=== PATIENT | female | born 1985 | race Caucasian/White ===

== ENCOUNTER 2019-08-12 11:09 | Emergency (ER) | payer MEDICAID, OTHER ==
[~2019-08-12] VITALS: Ht 165.1 cm; Wt 93.0 kg
[2019-08-12] MEDS ORDERED: SODIUM CHLORIDE 0.9% 1,000 ML IV ONE (11:18)
[2019-08-12 12:23] LABS: Basophils # (auto) 0 uL; Basophils % (auto) 0.6 % (0.0-2.0); Eosinophils # (auto) 0.1 uL; Eosinophils % (auto) 1.7 % (0.0-7.0); Hemoglobin 13.8 g/dL (12.2-16.2); Lymphocytes # (auto) 3.4 uL; Lymphocytes % (auto) 43.1 % (10.0-50.0); Mean Corpuscular Hemoglobin 29.2 pg (28.0-32.0); Mean Corpuscular Hgb Conc. 33.7 g/dL (32.0-36.0); Mean Corpuscular Volume 86.8 fL (80.0-100.0); Monocytes # (auto) 0.4 uL; Monocytes % (auto) 4.5 % (0.0-12.0); Neutrophils # (auto) 3.9 uL; Neutrophils % (auto) 50.1 % (37.0-80.0); Nucleated Red Blood Cells % 0.1 %; Platelet Count (auto) 251 10^3/uL (140-450); Red Blood Cells 4.72 10^6/uL (4.0-5.20); Red Cell Distribution Width 13.7 % (11.8-14.3); White Blood Cell 7.9 10^3/uL (4.4-10.8)
[2019-08-12 12:43] LABS: Albumin 3.7 g/dL (3.4-5.0); Calcium 9.2 mg/dL (8.5-10.1); Magnesium 1.8 mg/dL (1.6-2.6); Potassium 3.8 mmol/L (3.5-5.1)
[2019-08-12 12:46] LABS: Bilirubin, Total 0.2 mg/dL (0.2-1.0); Total Protein 7.5 g/dL (6.4-8.2)
[2019-08-12] MEDS ORDERED: KETOROLAC TROMETH 30 MG/ML 1ML VIAL IV ONE (14:30)
[2019-08-12] MEDS ORDERED: ONDANSETRON HCL 4 MG/2 ML VIAL IV ONE (17:30)
[2019-08-12] MEDS ORDERED: MORPHINE SULFATE 4 MG/ML SYR/VIAL IV ONE (17:30)
[2019-08-12 18:15] VITALS: BP 114/81
== END 2019-08-12 18:55 | disposition home or self-care (01) ==
LOC: ER 11:12
DX: M79.10 Myalgia, unspecified site (principal); F12.10 Cannabis abuse, uncomplicated; Z98.51 Tubal ligation status; Z88.2 Allergy status to sulfonamides; Z88.8 Allergy status to other drugs, medicaments and biological substances
CPT/HCPCS: 36415; 80053; 82553; 83735; 85025; 93005; 94761; 96374; 96375; 99284; J1885; J2270; J2405; J7030

== ENCOUNTER 2021-03-25 23:48 | Inpatient (IN) | payer MEDICAID ==
[~2021-03-25] VITALS: Ht 165.1 cm; Wt 94.6 kg
[2021-03-26 00:49] LABS: Basophils # (auto) 0.1 10 ^3/uL (0-0.2); Basophils % (auto) 0.3 % (0.0-2.0); Eosinophils # (auto) 0.1 10 ^3/uL (0-0.8); Eosinophils % (auto) 0.5 % (0.0-7.0); Hematocrit 41.3 % (36.0-46.0); Hemoglobin 13.9 g/dL (12.2-16.2); Lymphocytes # (auto) 5.2 10 ^3/uL (0.4-5.4); Lymphocytes % (auto) 22.2 % (10.0-50.0); Mean Corpuscular Hemoglobin 28.8 pg (28.0-32.0); Mean Corpuscular Hgb Conc. 33.8 g/dL (32.0-36.0); Mean Corpuscular Volume 85.5 fL (80.0-100.0); Monocytes # (auto) 1.1 10 ^3/uL (0-1.3); Monocytes % (auto) 4.6 % (0.0-12.0); Neutrophils % (auto) 72.4 % (37.0-80.0); Platelet Count (auto) 344 10^3/uL (140-450); Red Blood Cells 4.83 10^6/uL (4.0-5.20); White Blood Cell 23.4 10^3/uL (4.4-10.8)
[2021-03-26 01:08] LABS: Urine Bacteria FEW /hpf (None Seen); Urine Blood Negative /uL (Negative); Urine WBC 2 /hpf (0 - 5)
[2021-03-26 01:09] LABS: Albumin 3.7 g/dL (3.4-5.0); Calcium 9.5 mg/dL (8.5-10.1); Potassium 3.5 mmol/L (3.5-5.1)
[2021-03-26 01:10] LABS: BUN/Creatinine Ratio 21.3; Bilirubin, Total 0.3 mg/dL (0.2-1.0); Magnesium 2.2 mg/dL (1.6-2.6)
[2021-03-26] MEDS ORDERED: ONDANSETRON HCL 4 MG/2 ML VIAL IV ONE (01:45)
[2021-03-26] MEDS ORDERED: SODIUM CHLORIDE 0.9% 2,000 ML IV ONE (01:45)
[2021-03-26 02:11] LABS: Alcohol, Urine < 3.0 mg/dL (0-10); Amphetamine Screen, Urine NEGATIVE (NEGATIVE); Barbiturate Scree,Urine NEGATIVE (NEGATIVE); Benzodiazephine Screen, Urine NEGATIVE (NEGATIVE); Cannabinoid Screen, Urine NEGATIVE (NEGATIVE); Cocaine Screen, Urine NEGATIVE (NEGATIVE); Opiate Scree,Urine NEGATIVE (NEGATIVE); Phencyclidine Screen, Urine NEGATIVE (NEGATIVE)
[2021-03-26] MEDS ORDERED: IOHEXOL 300 MG/ML 100ML BOTTLE IJ ONE (02:14)
[2021-03-26] MEDS ORDERED: KETOROLAC TROMETH 30 MG/ML 1ML VIAL IV ONE (02:45)
[2021-03-26] MEDS ORDERED: fentaNYL CITRATE 100 MCG/2 ML VL IV ONE (05:45)
[2021-03-26] MEDS ORDERED: levoFLOXacin 500MG 100 ML IV ONE (05:45)
[2021-03-26] MEDS ORDERED: metroNIDAZOLE 500MG/100ML 100 ML IV ONE (05:45)
[2021-03-26] MEDS ORDERED: NITROGLYCERIN 0.4 MG SL TAB SL PRN (08:30)
[2021-03-26] MEDS ORDERED: MORPHINE SULF INJ 2 MG/ML SYRINGE 1ML IV PRN (08:30)
[2021-03-26] MEDS ORDERED: ACETAMINOPHEN 325 MG TAB PO PRN (08:30)
[2021-03-26] MEDS: SODIUM CHLORIDE 0.9% 1,000 ML IV SCH ×3 (09:00→22:06)
[2021-03-26] MEDS: cefTRIAXone 1GM/50ML D5W 50 ML IV SCH (09:24)
[2021-03-26] MEDS: MORPHINE SULF INJ 2 MG/ML SYRINGE 1ML IV PRN ×3 (09:24→20:06)
[2021-03-26] MEDS: PROMETHAZINE HCL 25 MG/ML 1ML IV PRN (09:25)
[2021-03-26 10:52] VITALS: BP 121/76
[2021-03-26] MEDS: HYDROcodone-ACET 5/325MG TAB PO PRN (11:08)
[2021-03-26] MEDS ORDERED: GABA-339 PO (11:18)
[2021-03-26] MEDS ORDERED: ONDA-144 PO (11:18)
[2021-03-26] MEDS ORDERED: BACL10TA PO (11:18)
[2021-03-26] MEDS ORDERED: FAMO-12 PO (11:18)
[2021-03-26] MEDS ORDERED: NALO4SPR2 (11:18)
[2021-03-26] MEDS ORDERED: LIDO1KIT EX (11:18)
[2021-03-26] MEDS ORDERED: DICL1GEL72 EX (11:18)
[2021-03-26] MEDS ORDERED: OXYC325T14 PO (11:18)
[2021-03-26] MEDS ORDERED: LIDO5CRE14 EX (11:18)
[2021-03-26] MEDS ORDERED: SERT50TA19 PO (11:18)
[2021-03-26] MEDS ORDERED: LIDO5PAD8 EX (11:19)
[2021-03-26] MEDS: metroNIDAZOLE 500MG/100ML 100 ML IV SCH ×2 (14:21→22:06)
[2021-03-26 16:42] VITALS: BP 136/75
[2021-03-26] MEDS ORDERED: SERTRALINE HCL 50 MG TAB PO ONE (18:45)
[2021-03-26 22:00] VITALS: BP 128/71
[2021-03-26] MEDS: GABAPENTIN 300 MG CAP PO SCH (22:04)
[2021-03-27] MEDS: MORPHINE SULF INJ 2 MG/ML SYRINGE 1ML IV PRN ×6 (00:10→21:33)
[2021-03-27] MEDS: PROMETHAZINE HCL 25 MG/ML 1ML IV PRN ×2 (00:45→13:26)
[2021-03-27 05:00] VITALS: BP 130/83
[2021-03-27] MEDS: metroNIDAZOLE 500MG/100ML 100 ML IV SCH ×3 (05:36→21:34)
[2021-03-27] MEDS: SODIUM CHLORIDE 0.9% 1,000 ML IV SCH (05:36)
[2021-03-27 05:52] LABS: Basophils # (auto) 0 10 ^3/uL (0-0.2); Basophils % (auto) 0.3 % (0.0-2.0); Eosinophils # (auto) 0.2 10 ^3/uL (0-0.8); Eosinophils % (auto) 2.1 % (0.0-7.0); Hematocrit 35.9 % (36.0-46.0); Lymphocytes # (auto) 3.2 10 ^3/uL (0.4-5.4); Lymphocytes % (auto) 27.4 % (10.0-50.0); Mean Corpuscular Hemoglobin 29.1 pg (28.0-32.0); Mean Corpuscular Hgb Conc. 33.4 g/dL (32.0-36.0); Monocytes # (auto) 0.6 10 ^3/uL (0-1.3); Monocytes % (auto) 5.4 % (0.0-12.0); Neutrophils # (auto) 7.5 10 ^3/uL (1.6-8.6); Neutrophils % (auto) 64.8 % (37.0-80.0); Nucleated Red Blood Cells % 0.1 %; Platelet Count (auto) 237 10^3/uL (140-450); Red Blood Cells 4.13 10^6/uL (4.0-5.20); Red Cell Distribution Width 13.4 % (11.8-14.3); White Blood Cell 11.6 10^3/uL (4.4-10.8)
[2021-03-27 06:07] LABS: Potassium 3.6 mmol/L (3.5-5.1)
[2021-03-27 06:13] LABS: BUN/Creatinine Ratio 13.3; Calcium 7.2 mg/dL (8.5-10.1)
[2021-03-27 08:48] VITALS: BP 123/59
[2021-03-27] MEDS: cefTRIAXone 1GM/50ML D5W 50 ML IV SCH (09:06)
[2021-03-27] MEDS: FAMOTIDINE 20 MG TAB PO SCH (09:07)
[2021-03-27] MEDS: GABAPENTIN 300 MG CAP PO SCH ×2 (09:07→21:34)
[2021-03-27] MEDS: SERTRALINE HCL 50 MG TAB PO SCH (09:07)
[2021-03-27 13:00] VITALS: BP 118/76
[2021-03-27 16:47] VITALS: BP 123/71
[2021-03-27 22:00] VITALS: BP 122/66
[2021-03-27] MEDS: HYDROcodone-ACET 5/325MG TAB PO PRN (22:47)
[2021-03-28] MEDS: MORPHINE SULF INJ 2 MG/ML SYRINGE 1ML IV PRN ×4 (01:34→14:33)
[2021-03-28 05:00] VITALS: BP 112/68
[2021-03-28] MEDS: metroNIDAZOLE 500MG/100ML 100 ML IV SCH ×2 (05:50→15:07)
[2021-03-28 06:23] LABS: Basophils # (auto) 0.1 10 ^3/uL (0-0.2); Basophils % (auto) 0.8 % (0.0-2.0); Eosinophils # (auto) 0.3 10 ^3/uL (0-0.8); Eosinophils % (auto) 3.1 % (0.0-7.0); Hematocrit 36.4 % (36.0-46.0); Hemoglobin 12.5 g/dL (12.2-16.2); Lymphocytes % (auto) 37.2 % (10.0-50.0); Mean Corpuscular Hemoglobin 29.9 pg (28.0-32.0); Mean Corpuscular Hgb Conc. 34.4 g/dL (32.0-36.0); Monocytes # (auto) 0.7 10 ^3/uL (0-1.3); Monocytes % (auto) 6.2 % (0.0-12.0); Neutrophils # (auto) 5.7 10 ^3/uL (1.6-8.6); Neutrophils % (auto) 52.7 % (37.0-80.0); Platelet Count (auto) 241 10^3/uL (140-450); Red Blood Cells 4.18 10^6/uL (4.0-5.20); Red Cell Distribution Width 13.3 % (11.8-14.3); White Blood Cell 10.8 10^3/uL (4.4-10.8)
[2021-03-28 06:41] LABS: BUN/Creatinine Ratio 14.3; Calcium 7.7 mg/dL (8.5-10.1); Potassium 3.3 mmol/L (3.5-5.1)
[2021-03-28] MEDS: HYDROcodone-ACET 5/325MG TAB PO PRN ×2 (07:53→15:54)
[2021-03-28 09:00] VITALS: BP 122/97
[2021-03-28] MEDS: cefTRIAXone 1GM/50ML D5W 50 ML IV SCH (10:12)
[2021-03-28] MEDS: FAMOTIDINE 20 MG TAB PO SCH (10:12)
[2021-03-28] MEDS: GABAPENTIN 300 MG CAP PO SCH (10:12)
[2021-03-28] MEDS: SERTRALINE HCL 50 MG TAB PO SCH (10:13)
[2021-03-28] MEDS ORDERED: CHOLESTYRAMINE 4 GM POWDER GT SCH (12:30)
[2021-03-28] MEDS ORDERED: CHOLESTYRAMINE 4 GM POWDER PO SCH (12:45)
[2021-03-28 13:00] VITALS: BP 125/91
[2021-03-28] MEDS ORDERED: METR500T PO (16:45)
[2021-03-28] MEDS ORDERED: IBUP600T27 PO (16:45)
[2021-03-28] MEDS ORDERED: DOXY-332 PO (16:45)
[2021-03-28] MEDS ORDERED: PROBCAP9 PO (16:45)
[2021-03-28 16:54] VITALS: BP 119/83
[2021-03-28 16:55] VITALS: BP 115/45
[2021-03-28 17:33] VITALS: BP 119/83
== END 2021-03-28 18:15 | disposition home or self-care (01) | DRG 249 ==
LOC: ER 23:48 → EDBD 23:48 → WEST WING 03-26 08:18
PROVIDERS: ADMIT Hospitalist; ATTEND Hospitalist
DX: K52.9 Noninfective gastroenteritis and colitis, unspecified (principal); R65.10 Systemic inflammatory response syndrome (SIRS) of non-infectious origin without acute organ dysfunction; Z20.822 Contact with and (suspected) exposure to COVID-19; Z88.8 Allergy status to other drugs, medicaments and biological substances; Z80.9 Family history of malignant neoplasm, unspecified; Z82.49 Family history of ischemic heart disease and other diseases of the circulatory system; Z83.3 Family history of diabetes mellitus
CPT/HCPCS: 36415; 74177; 80048; 80053; 80307; 81001; 81025; 82150; 83690; 83735; 85025; 85048; 87045; 87426; 87427; 87493; 96361; 96365; 96367; 96368; 96375; G0378; J0696; J1885; J1956; J2405; J3490

== ENCOUNTER 2021-04-27 15:55 | Emergency (ER) | payer MEDICAID ==
[~2021-04-27] VITALS: Ht 165.1 cm; Wt 90.7 kg
[~2021-04-27 15:55] MED LIST: BACL10TA PO; DICL1GEL72 EX; DOXY-332 PO; FAMO-12 PO; GABA-339 PO; IBUP600T27 PO; LIDO1KIT EX; LIDO5PAD8 EX; METR500T PO; NALO4SPR2; ONDA-144 PO; OXYC325T14 PO; PROBCAP9 PO; SERT50TA19 PO
[2021-04-27 19:04] VITALS: BP 110/69
== END 2021-04-27 21:33 | disposition home or self-care (01) ==
LOC: ER 15:55
DX: M76.31 Iliotibial band syndrome, right leg (principal); Z79.899 Other long term (current) drug therapy; Z88.8 Allergy status to other drugs, medicaments and biological substances
CPT/HCPCS: 93971

== ENCOUNTER 2022-03-16 11:02 | Inpatient (IN) | payer MEDICAID ==
[~2022-03-16] VITALS: Ht 165.1 cm; Wt 95.7 kg
[2022-03-16] MEDS ORDERED: MORPHINE SULFATE 4 MG/ML SYR/VIAL IV ONE ×2 (11:15→16:15)
[2022-03-16] MEDS ORDERED: PANTOPRAZOLE 40 MG/10 ML VIAL INJ IV ONE (11:15)
[2022-03-16] MEDS ORDERED: ONDANSETRON HCL 4 MG/2 ML VIAL IV ONE ×2 (11:15→16:15)
[2022-03-16] MEDS ORDERED: SODIUM CHLORIDE 0.9% 1,000 ML IVB ONE (11:15)
[2022-03-16 11:52] LABS: Basophils # (auto) 0 10 ^3/uL (0-0.2); Basophils % (auto) 0.5 % (0.0-2.0); Eosinophils # (auto) 0.2 10 ^3/uL (0-0.8); Eosinophils % (auto) 1.9 % (0.0-7.0); Hematocrit 38.8 % (36.0-46.0); Hemoglobin 13.1 g/dL (12.2-16.2); Lymphocytes # (auto) 3.4 10 ^3/uL (0.4-5.4); Lymphocytes % (auto) 35.6 % (10.0-50.0); Mean Corpuscular Hemoglobin 29.1 pg (28.0-32.0); Mean Corpuscular Hgb Conc. 33.8 g/dL (32.0-36.0); Mean Corpuscular Volume 86.2 fL (80.0-100.0); Monocytes # (auto) 0.4 10 ^3/uL (0-1.3); Monocytes % (auto) 4.7 % (0.0-12.0); Neutrophils # (auto) 5.4 10 ^3/uL (1.6-8.6); Neutrophils % (auto) 57.3 % (37.0-80.0); Nucleated Red Blood Cells % 0.1 %; Red Cell Distribution Width 13.1 % (11.8-14.3); White Blood Cell 9.4 10^3/uL (4.4-10.8)
[2022-03-16 12:12] LABS: Albumin 3.5 g/dL (3.4-5.0); BUN/Creatinine Ratio 9.5; Calcium 8.4 mg/dL (8.5-10.1); Potassium 3.8 mmol/L (3.5-5.1)
[2022-03-16 12:16] LABS: Bilirubin, Total 0.3 mg/dL (0.2-1.0); Total Protein 7.6 g/dL (6.4-8.2)
[2022-03-16] MEDS ORDERED: ACETAMINOPHEN 325 MG TAB PO PRN (17:45)
[2022-03-16] MEDS ORDERED: NITROGLYCERIN 0.4 MG SL TAB SL PRN (17:45)
[2022-03-16] MEDS ORDERED: SODIUM CHLORIDE 0.9% 1,000 ML IV SCH (17:45)
[2022-03-16] MEDS ORDERED: ONDANSETRON HCL 4 MG/2 ML VIAL IV PRN (17:45)
[2022-03-16] MEDS ORDERED: MORPHINE SULFATE INJECTION 2 MG/ML SYRG IV PRN (17:45)
[2022-03-16] MEDS: HYDROcodone-ACET 5/325MG TAB PO PRN (18:17)
[2022-03-16] MEDS: MORPHINE SULFATE INJECTION 2 MG/ML SYRG IV PRN (22:43)
[2022-03-16 22:59] VITALS: BP 142/72
[2022-03-16 23:06] VITALS: BP 142/72
[2022-03-16 23:25] VITALS: BP 142/72
[2022-03-17] MEDS: HYDROcodone-ACET 5/325MG TAB PO PRN ×3 (01:54→13:39)
[2022-03-17 05:00] VITALS: BP 123/54
[2022-03-17 05:50] LABS: Albumin 3.1 g/dL (3.4-5.0); Potassium 3.9 mmol/L (3.5-5.1)
[2022-03-17 05:52] LABS: BUN/Creatinine Ratio 8.5; Basophils # (auto) 0 10 ^3/uL (0-0.2); Basophils % (auto) 0.5 % (0.0-2.0); Eosinophils # (auto) 0.1 10 ^3/uL (0-0.8); Eosinophils % (auto) 1.2 % (0.0-7.0); Hematocrit 35.1 % (36.0-46.0); Hemoglobin 12.1 g/dL (12.2-16.2); Lymphocytes # (auto) 3.3 10 ^3/uL (0.4-5.4); Lymphocytes % (auto) 38.1 % (10.0-50.0); Mean Corpuscular Hemoglobin 29.7 pg (28.0-32.0); Mean Corpuscular Hgb Conc. 34.5 g/dL (32.0-36.0); Mean Corpuscular Volume 86.2 fL (80.0-100.0); Monocytes # (auto) 0.5 10 ^3/uL (0-1.3); Monocytes % (auto) 6.2 % (0.0-12.0); Neutrophils # (auto) 4.7 10 ^3/uL (1.6-8.6); Nucleated Red Blood Cells % 0.1 %; Red Blood Cells 4.07 10^6/uL (4.0-5.20); White Blood Cell 8.6 10^3/uL (4.4-10.8)
[2022-03-17 05:56] LABS: Bilirubin, Total 0.3 mg/dL (0.2-1.0); Total Protein 6.6 g/dL (6.4-8.2)
[2022-03-17] MEDS: MORPHINE SULFATE INJECTION 2 MG/ML SYRG IV PRN (08:13)
[2022-03-17 09:00] VITALS: BP 128/72
[2022-03-17] MEDS ORDERED: ENOXAPARIN SOD 40 MG/0.4 ML SYRINGE SC SCH (10:00)
[2022-03-17 13:00] VITALS: BP 121/67
[2022-03-17 13:08] VITALS: BP 128/65
== END 2022-03-17 15:30 | disposition home or self-care (01) | DRG 254 ==
LOC: ER 11:02 → OVERFLOW 17:36 → EAST 22:01
PROVIDERS: ADMIT Internal Medicine; ATTEND Internal Medicine
DX: K58.9 Irritable bowel syndrome, unspecified (principal); E66.01 Morbid (severe) obesity due to excess calories; Z20.822 Contact with and (suspected) exposure to COVID-19; Z88.8 Allergy status to other drugs, medicaments and biological substances; Z68.35 Body mass index [BMI] 35.0-35.9, adult; Z80.7 Family history of other malignant neoplasms of lymphoid, hematopoietic and related tissues; Z83.3 Family history of diabetes mellitus
CPT/HCPCS: 36415; 74176; 80053; 82150; 83690; 85025; 96361; 96374; 96375; C9113; G0378; J2405

== ENCOUNTER 2023-05-17 20:02 | Emergency (ER) | payer MEDICAID ==
[~2023-05-17] VITALS: Ht 165.1 cm; Wt 93.2 kg
[~2023-05-17 20:02] MED LIST changes: -DOXY-332 PO; +DOXY-448 PO; +IBUP-1454 PO; -IBUP600T27 PO; +SERT-206 PO; -SERT50TA19 PO
[2023-05-17 21:47] VITALS: BP 141/96
[2023-05-17] MEDS ORDERED: ONDANSETRON ODT 4 MG TAB PO ONE (22:00)
[2023-05-17] MEDS ORDERED: HYDROcodone-ACET 10/325MG TAB PO ONE (22:00)
[2023-05-18] MEDS ORDERED: KETOROLAC TROMETH 30 MG/ML 1ML VIAL IM ONE (00:45)
[2023-05-18] MEDS ORDERED: CEPH500C PO (00:45)
== END 2023-05-18 01:12 | disposition home or self-care (01) ==
LOC: ER 20:02
DX: M25.532 Pain in left wrist (principal); F12.10 Cannabis abuse, uncomplicated; Z98.51 Tubal ligation status; Z88.6 Allergy status to analgesic agent
CPT/HCPCS: 73200; 93971; 96372; 99285; J1885; Q0162

== ENCOUNTER 2023-08-04 11:43 | Emergency (ER) | payer MEDICAID ==
[~2023-08-04] VITALS: Ht 165.1 cm; Wt 95.3 kg
[~2023-08-04 11:43] MED LIST changes: +CEPH500C PO
[2023-08-04] MEDS ORDERED: HYDROcodone-ACET 10/325MG TAB PO ONE (13:00)
[2023-08-04 13:12] VITALS: BP 139/81; PULSE 91; RESP 18; TEMP 98; O2SAT 96
[2023-08-04] MEDS ORDERED: PRED20TA2 PO (13:57)
[2023-08-04] MEDS ORDERED: DOCU-94 PO (14:01)
== END 2023-08-04 14:03 | disposition home or self-care (01) ==
LOC: ER 11:43
DX: M54.59 Other low back pain (principal); G89.29 Other chronic pain; K59.00 Constipation, unspecified; F41.9 Anxiety disorder, unspecified; F15.90 Other stimulant use, unspecified, uncomplicated; Z98.890 Other specified postprocedural states; Z88.8 Allergy status to other drugs, medicaments and biological substances; Z79.1 Long term (current) use of non-steroidal anti-inflammatories (NSAID); Z79.899 Other long term (current) drug therapy
CPT/HCPCS: 72100